=== PATIENT | male | born 1940 | race Caucasian/White ===

== ENCOUNTER → 2018-02-16 08:19 | Outpatient (CLI) | payer BC ==
[2018-02-16 18:25] LABS: ALBUMIN 3.8 g/dL (3.4-5.0); BILIRUBIN - DIRECT 0.15 mg/dL (0.00-0.30); BILIRUBIN - INDIRECT 0.44 mg/dL (0.00-1.00); BILIRUBIN - TOTAL 0.59 mg/dL (0.2-1.3); LDL-HDL RATIO 1.6 ratio (1.5-3.5); PROTEIN - SERUM 7.3 g/dL (6.4-8.2)
== END | disposition home or self-care (01) ==
LOC: D.US 08:00
PROVIDERS: Internal Medicine Cardiovascular Disease
DX: R07.9 Chest pain, unspecified (principal); R09.89 Other specified symptoms and signs involving the circulatory and respiratory systems; E78.5 Hyperlipidemia, unspecified; I10 Essential (primary) hypertension; R00.2 Palpitations

== ENCOUNTER → 2018-02-16 17:36 | Outpatient (CLI) | payer MEDICARE, BC | END | disposition home or self-care (01) | LOC: D.LABREF 17:36 | DX: E78.5 Hyperlipidemia, unspecified (principal) ==

== ENCOUNTER 2018-03-04 07:10 | Outpatient (CLI) | payer BC ==
[~2018-03-04] VITALS: Ht 175.3 cm; Wt 114.5 kg
--- NOTE | ~2018-03-04 | HEMODYNAMI ---
PATIENT:MIRANDA DURANT MEDICAL RECORD: [id number] : 38 LOCATION:[facility] ADMISSION DATE: 03/04/18 Generatedon:03/04/20189:30 Patient name: MIRANDA DURANT Patient #: [id number] SSN: : Date of study: 03/04/2018 Page: Of Hemodynamic Procedure Report Patient Data Patient Demographics Procedure consent was obtained First Name: MIRANDA Gender: Male Last Name: CARLEEN : 1940 Middle Initial: D Age: 77 year(s) Patient #: [id number] Race: Unknown Additional ID: [id number] Contact details [address]: [address] [place] [address] State: [place] City: [place] Zip code: [address] Past Medical History Allergies Allergen Reaction Date Comments Reported Other allergy 03/04/2018 PLAVIX, ELIQUIS Admission Admission Data Admission Date: 03/04/2018 Admission Time: 7:10 Height (in.): 68 BSA: 2.28 (m2) Height (cm.): 172.72 BMI: 39.23 (kg/m2) Weight (lbs.): 258 Weight (kg.): 117.03 Procedure Procedure Types Cath Procedure Diagnostic Procedure [facility] w/Coronaries Procedure Description Procedure Date Procedure Date: 03/04/2018 Procedure Start Time: 9:13 Procedure End Time: 9:28 Procedure Staff Name Function Kelvin Calvo MD Performing Physician Maria C Roque RT Scrub Alma Delia Ibanez RN Nurse Sancho Alvarez RN Nurse Toni Coker RT Monitor Procedure Data Cath Procedure Fluoroscopy Diagnostic fluoroscopy Total fluoroscopy Time: 5 time: 5 min min Diagnostic fluoroscopy Total fluoroscopy dose: dose: 1073 mGy 1073 mGy Contrast Material Contrast Material Type Amount (ml) Isovue 300 61 Entry Location Entry Primary Successful Side Size Upsize Upsize Entry Closure Succes sful Closure Location (Fr) 1 (Fr) 2 (Fr) Remarks Device Remarks Radial Right 6 Fr Exoseal artery Short Estimated blood loss: 10 ml Diagnostic catheters Device Type Used For End Catheter Placement DIAGNOSTIC [place] 110cm 5 Procedure Fr catheter ([id number]) DIAGNOSTIC JL 3.5 5Fr Procedure catheter ([id number]) Procedure Complications No complications Procedure Medications Medication Administration Route Dosage Oxygen etCO2 Nasal cannula 2 l/min Lidocaine 2% added to field 20 Heparin Flush Bag added to field 2 bags (1000units/500ml NS) 0.9% NaCl I.V. 100 ml/hr Radial Cocktail I.A. 1 syringe (Verapomil 2mg/Nitro 400mcg/Heparin 1500units) Versed I.V. 2 mg Fentanyl I.V. 50 mcg Hemodynamics Rest BSA: 2.28 (m2) O2 Consumption: Estimated: 250.92 (ml/min) O2 Consumption indexed : Estimated:110.05 (ml/min/m) Heart Rate: 58 (bpm) Pressure Samples Time Site Value (mmHg) Purpose Heart Use Rate(bpm) 9:17 LV 93/1,9 EDP 62 9:18 AO 88/20(49) Snapshot 67 Gradients Valve Time Site Site Mean SEP/DFP Peak To Heart Use 1 2 (mmHg) (sec/min) Peak Rate (mmHg) (bpm) Aortic 9:18 LV AO 70 Snapshots Pre Cath Intra NCS Post Cath Vital Signs Time Heart Resp SPO2 etCO2 NIBP (mmHg) Rhythm Pain Sedation Rate (ipm) (%) (mmHg) Status Level (bpm) 9:02:01 54 23 96 30 152/84(99) NSR 0 (11) 10(A) , No pain 9:06:37 56 20 95 28.6 144/78(107) NSR 0 (11) 10(A) , No pain 9:10:57 57 29 95 30 131/78(109) NSR 0 (11) 10(A) , No pain 9:15:22 56 18 96 37.6 136/76(95) NSR 0 (11) 10(A) , No pain 9:19:48 68 27 96 32 104/60(79) NSR 0 (11) 9(A) , No pain 9:24:04 67 17 96 29.3 108/67(87) NSR 0 (11) 10(A) , No pain 9:28:18 62 18 93 24 114/69(84) NSR 0 (11) 10(A) , No pain Medications Time Medication Route Dose Verified Delivered Reason Notes Effectiveness by by 9:00:02 Oxygen etCO2 2 l/min Kelvin Alma Delia used for Nasal Umesh Ibanez procedure cannula RN 9:00:12 Lidocaine 2% added 20ml Kelvin Kelvin for local to vial Umesh Calvo MD anesthetic field MD 9:00:18 Heparin Flush added 2 bags Kelvin Kelvin used for Bag to Umesh Calvo MD procedure (1000units/500ml field NS) 9:00:27 0.9% NaCl I.V. 100 Kelvin Buffie Per ml/hr Umesh Alvarez RN physician 9:14:49 Radial Cocktail I.A. 1 Kelvin Kelvin for (Verapomil syringe Umesh Calvo MD vasodilation 2mg/Nitro MD 400mcg/Heparin 1500units) 9:15:02 Versed I.V. 2 mg Kelvin Buffie for sedation Umesh Alvarez RN, MD 9:15:15 Fentanyl I.V. 50 mcg Kelvin Buffie for sedation Umesh Alvarez RN, MD Procedure Log Time Note 8:38:01 Sancho Alvarez RN sent for patient. Start room use. 8:38:02 Time tracking: Regular hours (M-F 7:00 - 5:00) 8:38:05 Plan of Care:Hemodynamics will remain stable., Cardiac rhythm will remain stable., Comfort level will be maintained., Respiratory function will remain adequate., Patient/ family verbilizes understanding of procedure., Procedure tolerated without complication., Recovers from procedure without complications.. 8:38:07 Signed procedure consent form obtained from patient. 8:39:51 Patient allergic to Other allergyPLAVIX, ELIQUIS 8:40:58 Patient Weight : 258 lbs 8:48:48 Patient Height : 68 inches 8:50:18 Patient received from Pre/Post Procedure Room to CCL 1 Alert and oriented. Tansferred to table in Supine position. 8:50:20 Warm blankets applied, and wilberto hugger turned on for patient comfort. 8:50:20 Correct patient and procedure confirmed by team. 8:50:21 ECG and BP/O2 sat monitors applied to patient. 9:00:02 Oxygen 2 l/min etCO2 Nasal cannula was administered by Alma Delia Ibanez RN; used for procedure; 9:00:12 Lidocaine 2% 20ml vial added to field was administered by Kelvin Norred MD; for local anesthetic; 9:00:18 Heparin Flush Bag (1000units/500ml NS) 2 bags added to field was administered by Kelvin Calvo MD; used for procedure; 9:00:27 0.9% NaCl 100 ml/hr I.V. was administered by Sancho Alvarez RN; Per physician; 9:00:33 Vital chart was started 9:08:27 Baseline sample Acquired. 9:08:34 Rhythm: sinus bradycardia 9:08:35 Full Disclosure recording started 9:08:45 H&P Date Dictated: 03/03/2018 Within 30 days and on chart., H&P Addendum completed by physician on day of procedure. (MUST COMPLETE FOR ALL OUTPATIENTS). 9:08:46 Pre-procedure instructions explained to patient. 9:08:47 Pre-op teaching completed and patient verbalized understanding. 9:08:49 Family in patients room. 9:08:51 Patient NPO since Midnight. 9:08:54 Is the patient allergic to Iodine/contrast media? No. 9:08:57 Is patient on blood thinner?Yes 9:09:00 ACC The patient was administered the following blood thiners within the last 24 hours: ACCEffient 9:09:02 Patient diabetic? No. 9:09:04 Previous problem with sedation/anesthesia? No ? 9:09:05 Snore? Yes 9:09:07 Sleep apnea? Yes 9:09:09 Deviated septum? No 9:09:09 Opens mouth fully? Yes 9:09:10 Sticks out tongue? Yes 9:09:12 Airway obstruction? No ? 9:09:14 Dentures? No ? 9:09:16 Pre procedure: right dorsailis pedis pulse 1+ Palpable, but thready & weak; easily obliterated 9:09:18 Modified Martin's test Ulnar < 7 seconds 9:09:20 Patient pain scale 0/10 ?. 9:09:24 IV patent on arrival in left forearm with 0.9% NaCl at KVO. 9:09:26 Lab results completed and on chart. 9:09:29 Right Radial & Right Groin area was prepped with chlora-prep and draped in sterile fashion 9:09:30 Alarms reviewed by RRios N. 9:09:30 Sharps counted by scrub and verified by RRiosNRios 9::32 --------ALL STOP TIME OUT------ ::32 Final Timeout: patient, procedure, and site verified with staff and physician. All members of the team are in agreement. 9::34 Right Radial & Right Groin site verified by team. 9::37 Physical assessment completed. ASA score P 2 - A patient with mild systemic disease as per Kelvin Calvo MD. 9::40 Sedation plan: IV Moderate Sedation Medication:Versed, Fentanyl 9::37 Procedure started. 9:13:43 Local anesthetic to right radial artery with Lidocaine 2% by Kelvin Calvo MD.INITIAL ACCESS ONLY 9:13:46 Use device set Radial Dx or PCI 9:14:00 Tegaderm 4 x 4 ([id number]) opened to sterile field. 9:14:01 ACIST Manifold (05305) opened to sterile field. 9:14:01 ACIST Hand Control (45605) opened to sterile field. 9:14:02 ACIST Syringe (11342) opened to sterile field. 9:14:03 Medline Cath Pack ([id number]) opened to sterile field. 9:14:03 Bag Decanter (2002S) opened to sterile field. 9:14:06 SHEATH 6Fr Prelude Radial ([id number]) opened to sterile field. 9:14:08 DIAGNOSTIC WIRE .035 260cm J wire (283004) opened to sterile field. 9:14:08 MBrace Wrist Support ([id number]) opened to sterile field. 9:14:49 Radial Cocktail (Verapomil 2mg/Nitro 400mcg/Heparin 1500units) 1 syringe I.A. was administered by Kelvin Calvo MD; for vasodilation; 9:14:54 A 6 Fr Short sheath was inserted into the Right Radial artery 9:15:02 Versed 2 mg I.V. was administered by Sancho Alvaerz RN; for sedation; 9:15:15 Fentanyl 50 mcg I.V. was administered by Sancho Alvarez RN; for sedation; 9:15:27 A DIAGNOSTIC [place] 110cm 5 Fr catheter (665759) was advanced over the wire and used for Procedure. 9:16:24 Zero performed for pressure channel P1 9:16:28 Zero performed for pressure channel P1 9:18:00 LV angiography performed. 9:18:01 LV gram done using WHARTON 9:18:08 EF : 60 % 9:18:10 LV hemodynamics recorded. 9:18:14 Injector settings: Ml/sec: 12, Volume: 8, 9:18:41 RCA angiography performed. 9:22:31 Catheter exchanged over wire. 9:22:41 A DIAGNOSTIC JL 3.5 5Fr catheter ([id number]) was advanced over the wire and used for Procedure. 9:24:10 LCA angiography performed. 9:25:42 Catheter removed. 9:25:44 TR BAND Standard ([id number]) opened to sterile field. 9:26:24 Sheath removed intact; hemostasis achieved with Exoseal to the Right Radial artery. 9:26:27 Procedure ended.(Physican Out) 9:27:29 Fluoroscopy time 05.00 minutes. 9:27:33 Fluoroscopy dose: 1073 mGy 9:27:33 Flurop Dose total: 1073 9:27:37 Contrast amount:Isovue 300 61ml. 9:27:38 Sharps counted by scrub and verified by R.N. 9:27:42 TR band inflated with 12cc of air. 9:27:44 Insertion/operative site no bleeding no hematoma. 9:27:45 Post Procedure Pulses reassessed and unchanged 9:27:47 Post-procedure physical assessment completed. ASA score P 2 - A patient with mild systemic disease as per Kelvin Calvo MD. 9:27:49 Post procedure rhythm: unchanged. 9:27:53 Estimated blood loss: 10 ml 9:27:54 Post procedure instruction explained to patient.Patient verbalizes understanding. 9:27:55 Patient needs reinforcement of post procedure teaching. 9:27:59 Procedure and supply charges have been captured, reviewed, submitted and are correct. 9:28:01 Procedure Complication : No complications 9:28:22 Vital chart was stopped 9::22 See physician's report for complete and final results. 9:28:25 Report given to Pre/Post Procedure Room. 9:28:27 Patient transfered to Pre/Post Procedure Room with Bed. 9:28:30 Procedure ended. 9:28:30 Full Disclosure recording stopped 9:30:11 End room use (Document Last) Device Usage Item Name Manufacture Quantity Catalog Number Hospital Part Current M inimal Lot# / Charge Number Stock Stock Serial# Code Tegaderm 4 x 4 3M 1 [id number] 999380 192442 [id number] 5 (1626W) ACIST Manifold Acist 1 50715 568495 009495 204854 5 (41100) [employer] ACIST Hand Acist 1 15418 008304 387445 005335 5 Control (77288) [employer] ACIST Syringe Acist 1 91421 811610 663119 034665 2 0 (40047) [employer] Inc Medline Cath Cardinal 1 [id number] 404262 37889 793709 5 Pack Health ([id number]) Bag Decanter Microtek 1 2001S 586236 72951 650379 5 (2001S) Medical Inc. SHEATH 6Fr Merit 1 [id number] 266880 348436 379790 5 Prelude Radial Medical ([id number]) DIAGNOSTIC WIRE [place] 1 924483 294147 939714 536556 3 0 .035 260cm J wire (447379) MBrace Wrist Advanced 1 140-0250-00 954282 25346 637478 5 Support Vascular ([id number]) Dynamics DIAGNOSTIC Terumo 1 40-0013 613748 876515 483750 5 [place] 110cm 5 Fr catheter (726600) DIAGNOSTIC JL Cardinal 1 [id number] 237156 256812 386956 5 3.5 5Fr Health catheter ([id number]) TR BAND Terumo 1 [id number] 236594 924589 016027 4 0 Standard ([id number]) Signature Audit [place] Stage Time Signature Unsigned Intra-Procedure 03/04/2018 Toni Coker 9:30:30 AM RT(R) Signatures Monitor : Toni Coker RT Signature : Date : Time : [facility] [address] [place] [address]
--- NOTE | ~2018-03-04 | OP ---
PATIENT NAME: MIRANDA DURANT MEDICAL RECORD: [id number] :38 LOCATION:[facility]CAT ADMISSION DATE: SURGEON: KELVIN CASTILLO MD DATE OF SERVICE: 03/04/2018 PROCEDURE: Left heart catheterization, LV gram, coronary angiogram. PROPERTY MANAGEMENT SPECIALIST: Kelvin Castillo MD PROCEDURE IN DETAIL: The patient was brought to cardiac catheterization lab in stable condition. The right wrist was sterilely prepped and draped. We were able to put a 6-Mongolian sheath in the right radial artery in a retrograde fashion using the modified Seldinger technique. We were then able to advance and selectively engaged the left ventricular cavity, the right coronary artery and the left coronary artery respectively. FINDINGS: 1. Left main shows a proximal area of plaquing upon the acute turn of approximately 35% stenosis. 2. The LAD has a mid 50% stenosis. 3. The circumflex is nondominant and normal. 4. The RCA is a dominant vessel and normal. HEMODYNAMICS: Left ventricular ejection fraction of 60%. End-diastolic pressure is normal. No significant mitral regurgitation. No gradient across the aortic valve. IMPRESSION: This patient has mild coronary artery disease with preserved left ventricular function. Recommend aggressive medical management. TRANSINT:[id number] Voice Confirmation ID: [id number] DOCUMENT ID: [id number] KELVIN CASTILLO MD at 2344 CC: [id number] DICTATION DATE: 03/04/18928 FUEL OPERATOR: 03/04/18 0941 DEP CLI 03/04/18 [place] [address] [place] [address]
[2018-03-04] MEDS ORDERED: LIPITOR80 MG PO (07:28)
[2018-03-04] MEDS ORDERED: TRAVATAN Z2.5 ML EACH EYE (07:28)
[2018-03-04] MEDS ORDERED: TOPROL XL50 MG PO (07:29)
[2018-03-04] MEDS ORDERED: DILTIAZEM CAP 120 (07:29)
[2018-03-04] MEDS ORDERED: PAXIL40 MG PO (07:30)
[2018-03-04] MEDS ORDERED: PLAVIX75 MG PO (07:30)
[2018-03-04] MEDS ORDERED: PROTONIX40 MG PO (07:30)
[2018-03-04] MEDS ORDERED: ALPHAGAN P 0.155 ML EACH EYE (07:30)
[2018-03-04 07:45] VITALS: BP 129/67; Ht 175.3 cm; Wt 114.5 kg
[2018-03-04] MEDS ORDERED: MULTI-DAY VITAM1 TAB PO (08:02)
[2018-03-04] MEDS ORDERED: FLOMAX0.4 MG PO (08:02)
[2018-03-04] MEDS ORDERED: EFFIENT10 MG PO (08:03)
[2018-03-04] MEDS ORDERED: CLARITIN 10 MG10 MG PO (08:04)
[2018-03-04 08:07] LABS: BASOPHILS 0.6 % (0-2); EOSINOPHILS 4.4 % (0-7); HEMATOCRIT 40.3 % (42.0-54.0); HEMOGLOBIN 13.6 g/dL (13.5-17.5); IMMATURE GRANULOCYTES 0.3 % (0-5); LYMPHOCYTES 12.4 % (15-50); MCH 30.4 pg (26.0-34.0); MCHC 33.7 g/dL (31.0-37.0); MCV 90.2 fL (80.0-100.0); MEAN PLATELET VOLUME 11.5 fL (7.4-10.4); MONOCYTES 11.5 % (2-11); NEUTROPHILS 70.8 % (40-80); PLATELET COUNT 205 10x3/uL (130-400); RBC 4.47 10x6/uL (4.20-6.10); RDW 14.1 % (11.5-14.5)
[2018-03-04 08:18] LABS: CALC OSMOLALITY 281 mosm/kg (275-300); CALCIUM 8.7 mg/dL (8.5-10.1); CARBON DIOXIDE 24.9 mmol/L (21.0-32.0); CHLORIDE - SERUM 107 mmol/L (98-107); GLUCOSE 106 mg/dL (74-106); POTASSIUM - SERUM 4.1 mmol/L (3.5-5.1); SODIUM 141 mmol/L (136-145); UREA NITROGEN 14 mg/dL (7-18); eGFR NON AFRICAN AMERICAN 77 mL/min (90-120)
== END 2018-03-04 12:30 | disposition home or self-care (01) ==
LOC: D.CATH 07:10
PROVIDERS: Internal Medicine Cardiovascular Disease
DX: I25.119 Atherosclerotic heart disease of native coronary artery with unspecified angina pectoris (principal); Z01.812 Encounter for preprocedural laboratory examination